=== PATIENT | female | born 1995 | race Caucasian/White ===

== ENCOUNTER 2017-08-18 13:53 | Observation (INO) | payer BC ==
[~2017-08-18] VITALS: Ht 165.1 cm; Wt 73.2 kg
[2017-08-18] MEDS ORDERED: MoRPHine SULFATE 4 MG/ML 1 ML CARP\\VIAL IV STA (15:32)
[2017-08-18] MEDS ORDERED: ONDANSETRON INJ 2 MG/ML 2 ML VIAL IV STA (15:32)
[2017-08-18] MEDS ORDERED: SODIUM CHLORIDE 0.9% 1000ML 1,000 ML IV STA ×2 (15:32→17:45)
[2017-08-18] MEDS ORDERED: INSU100I23 SC (15:57)
[2017-08-18] MEDS ORDERED: LEVO50TA PO (15:57)
[2017-08-18] MEDS ORDERED: BCPILLS PO (15:57)
[2017-08-18] MEDS ORDERED: NVLGI/PEN SC (15:57)
[2017-08-18 15:59] LABS: BASO % 0.4 %; BASO ABS # 0.05 K/uL (0-0.2); COMPLETE YES; EOS % 0.7 %; HEMATOCRIT 43.3 % (37-47); IG% 0.2 %; LYMPH ABS # 2.15 K/uL (1.2-3.4); MEAN CORPUSCULAR HEMOGLOBIN 32.6 pg (25-34); MEAN CORPUSCULAR HGB CONC 36.3 g/dl (32-36); MEAN PLATELET VOLUME 9.9 fL (7.4-10.4); MONO % 6.3 %; NEUT % 76.4 %; PLATELET COUNT 338 K/uL (130-400); RED BLOOD COUNT 4.81 M/uL (4.2-5.4); WHITE BLOOD COUNT 13.44 K/uL (4.8-10.8)
[2017-08-18 16:01] LABS: URINE APPEARANCE CLEAR (CLEAR); URINE BILIRUBIN NEG (NEG); URINE COLOR YELLOW; URINE NITRITE NEG (NEG); URINE PH 6.5 (4.5-7.5); URINE SPECIFIC GRAVITY 1.035 (1.000-1.030); UROBILINOGEN NEG (NEG)
[2017-08-18 16:05] LABS: MANUAL MICROSCOPIC REQUIRED? NO; REVIEW REQ? NO
[2017-08-18 16:47] LABS: ALKALINE PHOSPHATASE 86 U/L (45-117); ALT/SGPT 23 U/L (12-78); BLOOD UREA NITROGEN 13 mg/dl (7-18); CARBON DIOXIDE 24 mmol/L (21-32); CHLORIDE 102 mmol/L (98-107); GLUCOSE 281 mg/dl (70-99); SODIUM 135 mmol/L (136-145)
--- NOTE | 2017-08-18 17:12 | DIAGNOSTIC IMAGING REPORT ---
APPENDIX ULTRASOUND HISTORY: Right lower quadrant abdominal pain. COMPARISON: None. FINDINGS: Transabdominal scanning of the right lower quadrant was performed. There is a blind-ending tubular structure within the right lower quadrant which appears to demonstrate a slightly thickened wall and measures up to 9 mm in diameter. Therefore, this meets sonographic criteria for acute appendicitis. Trace amount of fluid within the right lower quadrant. IMPRESSION: There is a blind-ending tubular structure within the right lower quadrant which appears to demonstrate a slightly thickened wall and measures up to 9 mm in diameter. Therefore, this meets sonographic criteria for acute appendicitis. Surgical consultation is recommended. Electronically signed by: Saeed Sellers M.D. 08/18/2017 5:11 PM Dictated Date/Time: 08/18/2017 5:09 PM
[2017-08-18] MEDS ORDERED: NovoLIN-R INSULIN PER UNIT CHARGE SC STA (17:45)
[2017-08-18] MEDS: MoRPHine SULFATE 4 MG/ML 1 ML CARP\\VIAL IV PRN ×2 (18:05→22:33)
[2017-08-18] MEDS ORDERED: HEPARIN SOD (PORCINE) 1000 UNIT/ML 10 ML VIAL ONE (18:38)
[2017-08-18] MEDS ORDERED: BUPIVACAINE 0.5 % 5 MG/1 ML MPF 30ML VIAL ONE (18:38)
[2017-08-18] MEDS ORDERED: DEXAMETHASONE SOD INJ 4 MG/ML VIAL ONE (18:50)
[2017-08-18] MEDS ORDERED: LIDOCAINE HCL 2% 2 ML VIAL (20MG/ML) ONE (18:50)
[2017-08-18] MEDS ORDERED: PROPOFOL IV EMULSION 10 MG/ML 20 ML VIAL IV ONE (18:50)
[2017-08-18] MEDS ORDERED: ONDANSETRON INJ 2 MG/ML 2 ML VIAL ONE (18:50)
[2017-08-18] MEDS ORDERED: FENTANYL CITRATE INJ 50 MCG/1 ML 2 ML VIAL ONE ×3 (18:51→20:53)
--- NOTE | 2017-08-18 19:12 | History and Physical ---
History & Physical Date & Time of Service: Aug 18, 2017 at 19:08 Chief Complaint: Pain In Lower Right Abdomen,Nausea Primary Care Physician: [facility] History of Present Illness Source: patient Malathi is a pleasant 22 year-old female who presented to emergency department today with complaint of abdominal pain that began yesterday with associated nausea. Pain began while she was driving back to school from home. Started in the central abdomen around the umbilicus. Mild to moderate pain that waxed and waned throughout the evening and then increased in severity around 4 am. States the pain is now located in the RLQ, 7/10 sharp stabbing. No fever, chills, vomiting, changes in bowel habits, diarrhea, constipation, or blood in stools. Never had this type of pain before. Type 1 diabetic on Insulin. Other medical history includes hypothyroidism. Had an ultrasound of the abdomen which showed tubular structure in the RLQ dilated at 9 mm. Concerning for acute appendicitis WBC at 13.44. Social History Smoking Status: Never Smoker Allergies Coded Allergies: No Known Allergies (Unverified , 08/18/17) Home Medications Scheduled Control Pills ( Control Pills), 1 TAB PO DAILY Insulin Aspart (Novolog Flexpen), 1 DOSE SC TIDM Insulin Glargine (Basaglar Kwikpen), 30 UNITS SC HS Levothyroxine Sodium (Synthroid), 50 MCG PO DAILY Review of Systems Constitutional: No fever, No chills, No sweats Respiratory: No shortness of breath, No dyspnea at rest Abdomen: + pain, + nausea, No vomiting, No diarrhea, No constipation, No GI bleeding Genitourinary - Female: No dysuria, No urinary frequency Integumentary: No rash Physical Exam Vital Signs Date Time Temp Pulse Resp B/P (MAP) Pulse Ox O2 Delivery O2 Flow Rate FiO2 08/18/17 18:42 88 20 136/72 100 Room Air 08/18/17 17:38 82 08/18/17 17:34 82 16 131/85 98 Room Air 08/18/17 15:51 86 14 124/80 98 Room Air 08/18/17 13:55 37.0 101 20 137/98 98 Room Air General Appearance: WD/WN, no apparent distress Eyes: sclerae normal ENT: hearing grossly normal Neck: trachea midline Respiratory/Chest: lungs clear, normal breath sounds, no respiratory distress, no accessory muscle use Cardiovascular: regular rate, rhythm, no murmur Abdomen/GI: soft, no organomegaly, no pulsatile mass, + tenderness (RLQ), + guarding Extremities/Musculoskelatal: no pedal edema Neurologic/Psych: alert, normal mood/affect, oriented x 3 Skin: normal color, warm/dry, no rash Diagnostics Laboratory Results Results Past 24 Hours Test 08/18/17 15:40 08/18/17 18:01 Range/Units White Blood Count 13.44 4.8-10.8 K/uL Red Blood Count 4.81 4.2-5.4 M/uL Hemoglobin 15.7 12.0-16.0 g/dL Hematocrit 43.3 37-47 % Mean Corpuscular Volume 90.0 80-100 fL Mean Corpuscular Hemoglobin 32.6 25-34 pg Mean Corpuscular Hemoglobin Concent 36.3 32-36 g/dl Platelet Count 338 130-400 K/uL Mean Platelet Volume 9.9 7.4-10.4 fL Neutrophils (%) (Auto) 76.4 % Lymphocytes (%) (Auto) 16.0 % Monocytes (%) (Auto) 6.3 % Eosinophils (%) (Auto) 0.7 % Basophils (%) (Auto) 0.4 % Neutrophils # (Auto) 10.26 1.4-6.5 K/uL Lymphocytes # (Auto) 2.15 1.2-3.4 K/uL Monocytes # (Auto) 0.85 0.11-0.59 K/uL Eosinophils # (Auto) 0.10 0-0.5 K/uL Basophils # (Auto) 0.05 0-0.2 K/uL RDW Standard Deviation 41.7 36.4-46.3 fL RDW Coefficient of Variation 12.7 11.5-14.5 % Immature Granulocyte % (Auto) 0.2 % Immature Granulocyte # (Auto) 0.03 0.00-0.02 K/uL Urine Color YELLOW Urine Appearance CLEAR CLEAR Urine pH 6.5 4.5-7.5 Urine Specific [place] 1.035 1.000-1.030 Urine Protein NEG NEG Urine Glucose (UA) 3+ NEG Urine Ketones 3+ NEG Urine Occult Blood NEG NEG Urine Nitrite NEG NEG Urine Bilirubin NEG NEG Urine Urobilinogen NEG NEG Urine Leukocyte Esterase NEG NEG Urine Test NEG NEG Sodium Level 135 136-145 mmol/L Potassium Level 3.5-5.1 mmol/L Chloride Level 102 98-107 mmol/L Carbon Dioxide Level 24 21-32 mmol/L Anion Gap 9.0 3-11 mmol/L Blood Urea Nitrogen 13 7-18 mg/dl Creatinine 1.00 0.60-1.20 mg/dl Est Creatinine Clear Calc Drug Dose 89.9 ml/min Estimated GFR () 93.9 Estimated GFR (Non- 81.0 BUN/Creatinine Ratio 13.0 10-20 Random Glucose 281 70-99 mg/dl Calcium Level 9.0 8.5-10.1 mg/dl Total Bilirubin 1.1 0.2-1 mg/dl Direct Bilirubin 0-0.2 mg/dl Aspartate Amino Transf (AST/SGOT) 15-37 U/L Alanine Aminotransferase (ALT/SGPT) 23 12-78 U/L Alkaline Phosphatase 86 45-117 U/L Total Protein 7.8 6.4-8.2 gm/dl Albumin 3.5 3.4-5.0 gm/dl Lipase 61 73-393 U/L Bedside Glucose 223 70-90 mg/dl Diagnostic Radiology Abdominal Ultrasound showing dilated tubular structure in the RLQ measuring 9 mm Impression Assessment and Plan Acute Appendicitis Plan to take patient to operating room for laparoscopic possible open appendectomy. Discussed risks and procedure with patient, informed consent obtained She will get 2 gms Ancef preop She will be admitted to Med/surg post op Dr. Gleason has seen and examined patient, agrees with above Note I interviewed and examined this patient and reviewed her ultrasound and lab results and I agree with the above note. Her history, physical findings, ultrasound are all consistent with appendicitis. I have recommended a laparoscopic appendectomy have explained the procedure and the possible need to convert to an open procedure and the possible complications and she hsa signed a consent form.
[2017-08-18] MEDS ORDERED: EpHEDrine SULFATE INJ 50 MG/ML AMP IV PRN (19:15)
[2017-08-18] MEDS ORDERED: FENTANYL CITRATE INJ 50 MCG/1 ML 2 ML VIAL IV PRN (19:15)
[2017-08-18] MEDS ORDERED: ATROPINE SULFATE 0.1 MG/ML 5ML SYR IV PRN (19:15)
[2017-08-18] MEDS ORDERED: PROMETHAZINE HCL INJ 6.25 MG in SODIUM CHLORIDE 0.9% 50ML 50 ML IV PRN (19:15)
[2017-08-18] MEDS ORDERED: ONDANSETRON INJ 2 MG/ML 2 ML VIAL IV PRN ×2 (19:15→21:15)
[2017-08-18] MEDS: CEFAZOLIN SOD 1 GM VIAL ONE ×2 (19:37→20:40)
[2017-08-18] MEDS ORDERED: MoRPHine SULFATE 2 MG/ML CARP ONE (19:43)
[2017-08-18] MEDS ORDERED: KETOROLAC TROMETHAMINE 30 MG/ML VIAL ONE (20:08)
[2017-08-18] MEDS ORDERED: GLYCOPYRROLATE INJ 0.2 MG/ML VIAL ONE (20:09)
[2017-08-18] MEDS ORDERED: NEOSTIGMINE METHYLSULFATE 5 MG/5 ML SYR ONE (20:09)
[2017-08-18] MEDS ORDERED: ROCURONIUM BROMID 50MG/5ML SYR ONE (20:09)
--- NOTE | 2017-08-18 20:51 | Anesthesiology Progress Note ---
Anesthesia Post Op Note Date & Time Aug 18, 2017 at 20:51 Vital Signs Pain Intensity: 1 Vital Signs Past 12 Hours Date Time Temp Pulse Resp B/P (MAP) Pulse Ox O2 Delivery O2 Flow Rate FiO2 08/18/17 20:45 55 14 106/69 95 Room Air 08/18/17 20:35 54 14 106/66 95 Room Air 08/18/17 20:25 36.6 64 14 103/67 97 Room Air 08/18/17 18:42 88 20 136/72 100 Room Air 08/18/17 17:38 82 08/18/17 17:34 82 16 131/85 98 Room Air 08/18/17 15:51 86 14 124/80 98 Room Air 08/18/17 13:55 37.0 101 20 137/98 98 Room Air Notes Mental Status: alert / awake / arousable, participated in evaluation Pt Amnestic to Procedure: Yes Nausea / Vomiting: adequately controlled Pain: adequately controlled Airway Patency, RR, SpO2: stable & adequate BP & HR: stable & adequate Hydration State: stable & adequate Anesthetic Complications: no major complications apparent
--- NOTE | 2017-08-18 21:02 | Anesthesiology Progress Note ---
Anesthesia Post Op Note Date & Time Aug 18, 2017 at 21:02 Vital Signs Pain Intensity: 3 Vital Signs Past 12 Hours Date Time Temp Pulse Resp B/P (MAP) Pulse Ox O2 Delivery O2 Flow Rate FiO2 08/18/17 20:55 57 16 107/68 95 Room Air 08/18/17 20:45 55 14 106/69 95 Room Air 08/18/17 20:35 54 14 106/66 95 Room Air 08/18/17 20:25 36.6 64 14 103/67 97 Room Air 08/18/17 18:42 88 20 136/72 100 Room Air 08/18/17 17:38 82 08/18/17 17:34 82 16 131/85 98 Room Air 08/18/17 15:51 86 14 124/80 98 Room Air 08/18/17 13:55 37.0 101 20 137/98 98 Room Air Notes Mental Status: alert / awake / arousable, participated in evaluation Pt Amnestic to Procedure: Yes Nausea / Vomiting: adequately controlled Pain: adequately controlled Airway Patency, RR, SpO2: stable & adequate BP & HR: stable & adequate Hydration State: stable & adequate Anesthetic Complications: no major complications apparent
[2017-08-18] MEDS ORDERED: MoRPHine SULFATE 4 MG/ML 1 ML CARP\\VIAL IV PRN (21:15)
--- NOTE | 2017-08-18 21:17 | [facility] Post Operative Brief Note ---
Immediate Operative Summary Operative Date Aug 18, 2017. Pre-Operative Diagnosis Acute Appendicitis Post-Operative Diagnosis Acute Appendicitis Procedure(s) Performed Laparoscopic Appendectomy Surgeon Dr. Gleason Chair And Couch Maker Surgeon(s) NONE Estimated Blood Loss 5 ml Findings See dictation Specimens Permanent Specimen A. Appendix Drains None Anesthesia General Complication(s) None Disposition Recovery Room / PACU
[2017-08-18 21:40] VITALS: BP 105/71; PULSE 63; TEMP 36.9; O2SAT 97; Ht 165.1 cm; Wt 73.2 kg
[2017-08-18] MEDS ORDERED: PHARMACY GLYCEMIC MGMT CONSULT PRN (22:01)
[2017-08-18 22:10] VITALS: BP 101/61; PULSE 61; TEMP 36.8
[2017-08-18 22:40] VITALS: BP 93/61; PULSE 78; TEMP 36.7; O2SAT 96
[2017-08-18] MEDS ORDERED: D5W AND 1/2NSS + 20MEQ KCL 1,000 ML IV SCH (23:00)
[2017-08-18] MEDS ORDERED: GLUCOSE 40% GEL 15 GM TUBE PO PRN (23:15)
[2017-08-18] MEDS ORDERED: GLUCAGON FOR INJ 1 MG VIAL SQ PRN (23:15)
[2017-08-18] MEDS ORDERED: GLUCOSE 10 TABS/TUBE PO PRN (23:15)
[2017-08-18] MEDS ORDERED: DEXTROSE 50% 50 ML SYR IV PRN (23:15)
[2017-08-18] MEDS ORDERED: INSULIN GLARGINE SOLOSTAR 100 UNITS/ML 3 ML PEN SC SCH (23:30)
[2017-08-18 23:40] VITALS: BP 103/69; PULSE 71; TEMP 36.4; O2SAT 95
--- NOTE | 2017-08-18 23:45 | OPERATIVE REPORT ---
DATE OF OPERATION: 08/18/2017 PREOPERATIVE DIAGNOSIS: Acute appendicitis. POSTOPERATIVE DIAGNOSIS: Same. PROCEDURE: Laparoscopic appendectomy. SURGEON: Dr. Gleason. FINDINGS: The appendix was elongated. Its distal half was firm, hyperemic and edematous. The proximal half including the base was normal. The cecum was normal, especially at the base of the appendix. The visible bowel appeared normal. TECHNIQUE: The patient was given a general anesthetic and the area was prepped and draped in usual sterile fashion. Transverse incision was made below the umbilicus, carried down through the subcutaneous tissue to the fascia which was grasped with 2 Jose clamps and incised between. The peritoneum was identified, incised, and the introducer was placed bluntly. The abdomen was then insufflated to a pressure of 15 mmHg with carbon dioxide. The lower midline introducer was placed under direct vision through small skin incision. Traction was placed medially on the cecum and the appendix was easily identified. Left lower quadrant introducer was placed under direct vision through small skin incisions. Traction was placed anteriorly on the appendix. There were some lateral attachments that were divided, providing more mobility. That allowed me to identify the base of the appendix. I was then able to separate the mesoappendix away from the base of the appendix and divide the mesoappendix using the Endo-KASSIE stapler. The appendix base was then confidently identified. The appendix was amputated off the cecum using the Endo-KASSIE stapler. The appendix was placed into an Endobag and brought out through the left lower quadrant introducer site. That introducer was replaced and the right lower quadrant was inspected. The staple lines were seen. There was no bleeding. The right lower quadrant was irrigated and irrigation removed. Any irrigation fluid in the pelvis was removed and any irrigation up over the liver was removed. The gas was allowed to escape and the introducers were removed. The fascia of the umbilical and left lower quadrant introducer sites was closed with interrupted 0 Vicryl and the skin of all the incisions was closed with 4-0 Monocryl in a running or interrupted subcuticular fashion. The skin was anesthetized with 0.5% Marcaine. The skin was cleansed, dried, benzoin placed, Steri-Strips applied. Estimated blood loss was 5 mL. Sponge, needle and instrument counts were correct prior to closure. The patient tolerated the surgical procedure without complication and was transferred to recovery. I attest to the content of the Intraoperative Record and any orders documented therein. Any exception s are noted below.
[2017-08-18] MEDS: OXYCODONE/ACETAMINOPHEN 5-325 TAB PO PRN (23:49)
--- NOTE | 2017-08-19 00:33 | EMERGENCY ROOM VISIT NOTE ---
ED Visit Note First contact with patient: 15:05 Chief Complaint: I'm having pain in my right lower abdomen. History of Present Illness: Ms. Bradford is a 22 year-old white female complaining of right lower quadrant abdominal pain. Historically patient reports no significant gastrointestinal disorders or abdominal surgeries. Patient reports yesterday afternoon approximately 4 PM, approximately 24 hours ago, she was riding back to school from home; worsening EC area and started getting nausea and had some mild abdominal discomfort in the periumbilical area. Throughout the evening and most tonight this discomfort was constant but that slightly waxed and waned in intensity. Then she noted approximately 4 AM this morning her pain intensified and became constant. She did report she takes Tums yesterday because she thought this was possibly carsickness without relief. Currently she is describing her pain as a sharp stabbing sensation in the right lower quadrant. She rates her discomfort 6/10. The pain is nonradiating. Her pain her sons when she moves from the lying to sitting position with the stating to the standing position. She has not identified any alleviating factors related to the pain. She has not taken any additional medications for pain prior to arrival at the hospital. Associated with her pain she reports she 's been nauseated but has not vomited and she has had a decreased appetite. She denies fevers, chills, sweats, skin eruptions, skin color changes, upper respiratory tract symptoms, shortness of breath, chest pain, diarrhea, constipation, rectal bleeding, black/tarry stools, urinary symptoms, hematuria, vaginal bleeding, vaginal discharge, back/flank pain. Review of Systems: As noted above in history of present illness. All body systems were reviewed and found to be negative as noted above. Past Medical History: Diabetes type 1, hypothyroidism, unspecified skin disorder , bronchitis, chronic urinary tract infections, status post wisdom teeth extraction. Current Medications: Medications Dose Route/Sig Max Daily Dose Days Date Category Dose Instructions Basaglar Kwikpen (Insulin Glargine) 100 Unit/Ml Inj 30 Units SC HS 08/18/17 Reported Synthroid (Levothyroxine Sodium) 50 Mcg Tab 50 Mcg PO DAILY 08/18/17 Reported Novolog Flexpen (Insulin Aspart) 100 Units/Ml Inj 1 Dose SC TIDM 08/18/17 Reported COVERAGE DIRECTED BY [employer]ING [employer] Control Pills (Miscellaneous) Tab 1 Tab PO DAILY 08/18/17 Reported Allergies to Medications: Patient denies. Social History: Patient is University student; she feels safe in her home environment; she denies tobacco use and admits to alcohol use. Physical Examination: Vital Signs: Date Time Temp Pulse Resp B/P (MAP) Pulse Ox O2 Delivery O2 Flow Rate FiO2 08/18/17 21:10 36.5 57 16 104/69 95 Room Air 08/18/17 20:55 57 16 107/68 95 Room Air 08/18/17 20:45 55 14 106/69 95 Room Air 08/18/17 20:35 54 14 106/66 95 Room Air 08/18/17 20:25 36.6 64 14 103/67 97 Room Air 08/18/17 18:42 88 20 136/72 100 Room Air 08/18/17 17:38 82 08/18/17 17:34 82 16 131/85 98 Room Air 08/18/17 15:51 86 14 124/80 98 Room Air 08/18/17 13:55 37.0 101 20 137/98 98 Room Air GENERAL: 22-year-old female in mild distress due to pain, nontoxic-appearing, afebrile and hemodynamically stable. NEUROLOGICAL: Awake, alert and oriented to person, place and time. Answering questions appropriately and following commands. Normal gait. Good hand eye coordination. SKIN: Warm, dry and pink. No soft tissue eruptions or trauma noted. HEENT: Atraumatic and normocephalic. PERRLA. Sclera white and conjunctiva pink. Oral cavity moist and pink. Pharynx is nonerythematous or edematous. Speech normal. No lymphadenopathy. Trachea midline. No jugular venous distention. BACK: No tenderness over the bony spine. No CVA tenderness. THORAX: Lungs sounds are clear to auscultation and equal bilaterally with symmetrical chest wall. No wheezing, rales or rhonchi. No crepitus, tenderness , subcutaneous air or deformities noted. HEART: Regular rate and rhythm. No gallops, rubs or murmurs are appreciated. ABDOMEN: Flat and soft with moderate tenderness and voluntary guarding in the right lower quadrant. Decreased bowel sounds in all quadrants. No rigidity or organomegaly. Positive Rovsing's sign and Heel tap. EXTREMITIES: Moves all extremities well on command and with purpose. All distal neurovascular statuses are intact and equal bilaterally. ED Course: Patient is assessed as noted above. Laboratory Testing: Test 08/18/17 15:40 08/18/17 18:01 08/18/17 20:34 Range/Units White Blood Count 13.44 4.8-10.8 K/uL Red Blood Count 4.81 4.2-5.4 M/uL Hemoglobin 15.7 12.0-16.0 g/dL Hematocrit 43.3 37-47 % Mean Corpuscular Volume 90.0 80-100 fL Mean Corpuscular Hemoglobin 32.6 25-34 pg Mean Corpuscular Hemoglobin Concent 36.3 32-36 g/dl Platelet Count 338 130-400 K/uL Mean Platelet Volume 9.9 7.4-10.4 fL Neutrophils (%) (Auto) 76.4 % Lymphocytes (%) (Auto) 16.0 % Monocytes (%) (Auto) 6.3 % Eosinophils (%) (Auto) 0.7 % Basophils (%) (Auto) 0.4 % Neutrophils # (Auto) 10.26 1.4-6.5 K/uL Lymphocytes # (Auto) 2.15 1.2-3.4 K/uL Monocytes # (Auto) 0.85 0.11-0.59 K/uL Eosinophils # (Auto) 0.10 0-0.5 K/uL Basophils # (Auto) 0.05 0-0.2 K/uL RDW Standard Deviation 41.7 36.4-46.3 fL RDW Coefficient of Variation 12.7 11.5-14.5 % Immature Granulocyte % (Auto) 0.2 % Immature Granulocyte # (Auto) 0.03 0.00-0.02 K/uL Urine Color YELLOW Urine Appearance CLEAR CLEAR Urine pH 6.5 4.5-7.5 Urine Specific [place] 1.035 1.000-1.030 Urine Protein NEG NEG Urine Glucose (UA) 3+ NEG Urine Ketones 3+ NEG Urine Occult Blood NEG NEG Urine Nitrite NEG NEG Urine Bilirubin NEG NEG Urine Urobilinogen NEG NEG Urine Leukocyte Esterase NEG NEG Urine Test NEG NEG Sodium Level 135 136-145 mmol/L Potassium Level 3.5-5.1 mmol/L Chloride Level 102 98-107 mmol/L Carbon Dioxide Level 24 21-32 mmol/L Anion Gap 9.0 3-11 mmol/L Blood Urea Nitrogen 13 7-18 mg/dl Creatinine 1.00 0.60-1.20 mg/dl Est Creatinine Clear Calc Drug Dose 89.9 ml/min Estimated GFR () 93.9 Estimated GFR (Non- 81.0 BUN/Creatinine Ratio 13.0 10-20 Random Glucose 281 70-99 mg/dl Calcium Level 9.0 8.5-10.1 mg/dl Total Bilirubin 1.1 0.2-1 mg/dl Direct Bilirubin 0-0.2 mg/dl Aspartate Amino Transf (AST/SGOT) 15-37 U/L Alanine Aminotransferase (ALT/SGPT) 23 12-78 U/L Alkaline Phosphatase 86 45-117 U/L Total Protein 7.8 6.4-8.2 gm/dl Albumin 3.5 3.4-5.0 gm/dl Lipase 61 73-393 U/L Bedside Glucose 223 138 70-90 mg/dl Appendix Ultrasound: Was reviewed by myself and read by the radiologist showing a blind ended tubular structure within the right lower quadrant which appears slightly thickened and measures up to 9 mm meeting criteria for acute appendicitis. Patient was hydrated with normal saline and she received for pain received a total of 8 mg of morphine IV for pain and 4 mg of Zofran IV for nausea. Additionally she was found to be hyperglycemic and was given 10 units of regular insulin subcutaneous; her blood sugars were monitored and she was never hypoglycemic. Patient's case was consulted with Dr. Kevyn Gleason, general surgery; for surgical evaluation. Patient is educated about today's findings and instructed on her treatment plan ; she verbalized understanding and agreement with this plan. Clinical Impression: Acute appendicitis. Decision-Making: Initially my differential diagnosis I considered acute appendicitis, constipation, ectopic , ovarian torsion, ovarian cyst rupture, urinary tract infection, kidney stone and other causes. Disposition and Plan: Patient was taken to the OR for surgery with Dr. Gleason ; please see his notes and orders for final disposition and plan.
[2017-08-19 00:40] VITALS: BP 97/63; PULSE 76; TEMP 36.8; O2SAT 96
[2017-08-19] MEDS: INSULIN ASPART 100 UNITS/ML 3 ML PEN SC SCH ×3 (02:04→13:15)
[2017-08-19 04:44] VITALS: BP 97/61; PULSE 66; TEMP 36.7; O2SAT 97
[2017-08-19] MEDS ORDERED: IV FLUIDS COMPLETED PRN (05:45)
[2017-08-19 07:16] VITALS: BP 113/68; PULSE 67; TEMP 36.7; O2SAT 97
--- NOTE | 2017-08-19 09:04 | Surgery Progress Note ---
Surgery Progress Note Date of Service Aug 19, 2017. Subjective Post OP Day: 1 (s/p laparoscopic appendectomy) + feeling well, + pain controlled (with oral pain medication), + diet (not very hungry , had some pudding just to take Percocet), No chest pain, No SOB, No bowel movement, No flatus, No nausea, No vomiting Objective Vital Signs: Date Time Temp Pulse Resp B/P (MAP) Pulse Ox O2 Delivery O2 Flow Rate FiO2 08/19/17 08:11 Room Air 08/19/17 07:16 36.7 67 14 113/68 (83) 97 Room Air 08/19/17 04:44 36.7 66 14 97/61 (73) 97 Room Air 08/19/17 00:40 36.8 76 14 97/63 (74) 96 Room Air 08/18/17 23:40 36.4 71 14 103/69 (80) 95 Room Air 08/18/17 22:40 36.7 78 18 93/61 (72) 96 Room Air 08/18/17 22:10 36.8 61 16 101/61 (74) Room Air 08/18/17 21:40 36.9 63 16 105/71 97 Room Air 08/18/17 21:40 97 Room Air 08/18/17 21:40 Room Air 08/18/17 21:20 36.5 59 16 112/67 95 Room Air 08/18/17 21:10 36.5 57 16 104/69 95 Room Air 08/18/17 20:55 57 16 107/68 95 Room Air 08/18/17 20:45 55 14 106/69 95 Room Air 08/18/17 20:35 54 14 106/66 95 Room Air 08/18/17 20:25 36.6 64 14 103/67 97 Room Air 08/18/17 18:42 88 20 136/72 100 Room Air 08/18/17 17:38 82 08/18/17 17:34 82 16 131/85 98 Room Air 08/18/17 15:51 86 14 124/80 98 Room Air 08/18/17 13:55 37.0 101 20 137/98 98 Room Air General Appearance: WD/WN, no apparent distress Head: normocephalic, atraumatic Neck: trachea midline Respiratory/Chest: lungs clear, normal breath sounds, no respiratory distress, no accessory muscle use Cardiovascular: regular rate, rhythm, no murmur Abdomen: non distended, soft, + tenderness (appropriate post op at incision sites and generalized, no further RLQ peritonitis or guarding) Incision(s): clean, dry, intact, findings (steri strips present) Laboratory Results: Results Past 24 Hours Test 08/18/17 15:40 08/18/17 18:01 08/18/17 20:34 08/18/17 23:45 Range/Units White Blood Count 13.44 4.8-10.8 K/uL Red Blood Count 4.81 4.2-5.4 M/uL Hemoglobin 15.7 12.0-16.0 g/dL Hematocrit 43.3 37-47 % Mean Corpuscular Volume 90.0 80-100 fL Mean Corpuscular Hemoglobin 32.6 25-34 pg Mean Corpuscular Hemoglobin Concent 36.3 32-36 g/dl Platelet Count 338 130-400 K/uL Mean Platelet Volume 9.9 7.4-10.4 fL Neutrophils (%) (Auto) 76.4 % Lymphocytes (%) (Auto) 16.0 % Monocytes (%) (Auto) 6.3 % Eosinophils (%) (Auto) 0.7 % Basophils (%) (Auto) 0.4 % Neutrophils # (Auto) 10.26 1.4-6.5 K/uL Lymphocytes # (Auto) 2.15 1.2-3.4 K/uL Monocytes # (Auto) 0.85 0.11-0.59 K/uL Eosinophils # (Auto) 0.10 0-0.5 K/uL Basophils # (Auto) 0.05 0-0.2 K/uL RDW Standard Deviation 41.7 36.4-46.3 fL RDW Coefficient of Variation 12.7 11.5-14.5 % Immature Granulocyte % (Auto) 0.2 % Immature Granulocyte # (Auto) 0.03 0.00-0.02 K/uL Urine Color YELLOW Urine Appearance CLEAR CLEAR Urine pH 6.5 4.5-7.5 Urine Specific [place] 1.035 1.000-1.030 Urine Protein NEG NEG Urine Glucose (UA) 3+ NEG Urine Ketones 3+ NEG Urine Occult Blood NEG NEG Urine Nitrite NEG NEG Urine Bilirubin NEG NEG Urine Urobilinogen NEG NEG Urine Leukocyte Esterase NEG NEG Urine Test NEG NEG Sodium Level 135 136-145 mmol/L Potassium Level 3.5-5.1 mmol/L Chloride Level 102 98-107 mmol/L Carbon Dioxide Level 24 21-32 mmol/L Anion Gap 9.0 3-11 mmol/L Blood Urea Nitrogen 13 7-18 mg/dl Creatinine 1.00 0.60-1.20 mg/dl Est Creatinine Clear Calc Drug Dose 89.9 ml/min Estimated GFR () 93.9 Estimated GFR (Non- 81.0 BUN/Creatinine Ratio 13.0 10-20 Random Glucose 281 70-99 mg/dl Calcium Level 9.0 8.5-10.1 mg/dl Total Bilirubin 1.1 0.2-1 mg/dl Direct Bilirubin 0-0.2 mg/dl Aspartate Amino Transf (AST/SGOT) 15-37 U/L Alanine Aminotransferase (ALT/SGPT) 23 12-78 U/L Alkaline Phosphatase 86 45-117 U/L Total Protein 7.8 6.4-8.2 gm/dl Albumin 3.5 3.4-5.0 gm/dl Lipase 61 73-393 U/L Bedside Glucose 223 138 117 70-90 mg/dl Test 08/19/17 02:02 08/19/17 07:55 Range/Units Bedside Glucose 159 274 70-90 mg/dl Assessment & Plan POD # 1 s/p laparoscopic appendectomy -vitals stable, afebrile - adequate urine output - pain controlled with PO Percocet - low appetite currently Plan: Will evaluate patient later this morning, early afternoon, if pain is controlled further with PO Percocet, tolerates more of a diet, and ambulates hopeful discharge later today. Will stop D5w given type 1 diabetes and start NS @ 100 mls/hr until tolerating PO well and then can decrease continue current management Evaluated at 2:[address] Gleason Patient doing well, tolerated regular diet for lunch Pain controlled with Percocet Ambulating without difficulty Plan to d/c home, instructions reviewed and Rx given Follow-up in [address] Gleason has seen patient, agrees with above
[2017-08-19] MEDS ORDERED: SODIUM CHLORIDE 0.9% 1000ML 1,000 ML IV SCH (09:15)
--- NOTE | 2017-08-19 09:21 | Pharmacy Progress Note ---
Glycemic Control Intl Consult Date of Service Aug 19, 2017. Scope Glycemic Pharmacist consulted by Dr Gleason on 08/18/17 for glycemic control and to write orders per [facility] inpatient glycemic control protocol Objective Weight (Kilograms): 73.200 Accuchecks BSG (last 24hrs): Test 08/18/17 15:40 08/18/17 18:01 08/18/17 20:34 08/18/17 23:45 Random Glucose 281 mg/dl (70-99) Bedside Glucose 223 mg/dl (70-90) 138 mg/dl (70-90) 117 mg/dl (70-90) Test 08/19/17 02:02 08/19/17 07:55 Bedside Glucose 159 mg/dl (70-90) 274 mg/dl (70-90) Laboratory Data (last 24hrs) Test 08/18/17 15:40 Anion Gap 9.0 mmol/L BUN/Creatinine Ratio 13.0 Blood Urea Nitrogen 13 mg/dl Creatinine 1.00 mg/dl Potassium Level mmol/L Sodium Level 135 mmol/L White Blood Count 13.44 K/uL Red Blood Count 4.81 M/uL Hemoglobin 15.7 g/dL Hematocrit 43.3 % Mean Corpuscular Volume 90.0 fL Mean Corpuscular Hemoglobin 32.6 pg Mean Corpuscular Hemoglobin Concent 36.3 g/dl Platelet Count 338 K/uL Mean Platelet Volume 9.9 fL Neutrophils (%) (Auto) 76.4 % Lymphocytes (%) (Auto) 16.0 % Monocytes (%) (Auto) 6.3 % Eosinophils (%) (Auto) 0.7 % Basophils (%) (Auto) 0.4 % Neutrophils # (Auto) 10.26 K/uL Lymphocytes # (Auto) 2.15 K/uL Monocytes # (Auto) 0.85 K/uL Eosinophils # (Auto) 0.10 K/uL Basophils # (Auto) 0.05 K/uL Recent Pertinent Medications Outpatient Anti-diabetic Regimen: * Lantus 30 units SQ HS * NovoLog with meals per scale The patient is currently receiving: * Basal insulin: Lantus 25 units every 24 hours given at bedtime * Correctional Insulin: Novolog Correction per scale ACHS Goal Range: Low 110 mg/dL - High 150 mg/dL Correction Factor: 30 mg/dL/unit * Prandial insulin: Per carb ratio of 1 unit per 10 grams CHO consumed Risk Factors for Insulin Resistance: * Recent Surgery * Diet Assessment & Plan ASSESSMENT: * 22yo T1DM female s/p appy. Degree of outpatient control uncertain as no recent A1c reported. * Reduced Lantus dose given last night secondary to decreased PO intake and 10 units of regular insulin SQ given in OR. BSG checked and covered at 0200 d/t reduced dose given. * BSG rising this morning secondary to stress from surgery and dextrose IVF. Dextrose IVF needed in type 1 diabetic as source of CHO while prolonged NPO. * IVF changed to NSS per provider. Pt ate a little bit of pudding this morning * ADA & AACE recommend a goal blood sugar range 140-180 mg/dl for the majority of critically ill & non-critically ill patients. However, more stringent targets may be selected in individual cases. Will utilize more stringent goal of 110-140mg/dl based on patient age & comorbidities. Additionally, tighter glycemic control is warranted to facilitate wound/infection healing. PLAN FOR INPATIENT GLYCEMIC CONTROL: * Basal insulin * Resume outpatient dosing of Lantus 30 units SQ HS * Bolus insulin * NovoLog per scale ACHS or Q6hrs while NPO * Goal Range: Low 110 mg/dL - High 140 mg/dL * Correction Factor: 30 mg/dL/unit * Nutritional / Prandial insulin per carb ratio of 1 unit per 10 grams CHO consumed * Please note that the plan above was derived based on current level of insulin resistance and hospital stress. These recommendations are appropriate for inpatient admission only. Plan of care upon discharge will need to be reassessed to avoid potential outpatient hypo/hyperglycemia. Thank you.
[2017-08-19] MEDS: OXYCODONE/ACETAMINOPHEN 5-325 TAB PO PRN ×2 (09:43→15:33)
[2017-08-19 11:24] VITALS: BP 107/68; PULSE 65; TEMP 36.7; O2SAT 97
[2017-08-19] MEDS ORDERED: OXYC-57 PO (13:33)
--- NOTE | 2017-08-19 13:38 | Discharge Instructions ---
Discharge Instructions Date of Service Aug 19, 2017. Admission Reason for Admission: Appendicitis Discharge Discharge Diagnosis / Problem: same Discharge Goals Goal(s): Decrease discomfort, Improve function Activity Recommendations Activity Limitations: as noted below No heavy lifting over 10 pounds for 2 weeks No strenuous activity until cleared by surgeon No Submerging incisions underwater for 2 weeks (no bathing, swimming, or hot tubs) No driving while taking narcotic pain medication or until you are pain free . Instructions / Follow-Up Instructions / Follow-Up You may shower when you get home. Leave steri strips on incisions for 7 days. They may fall off on their own that is okay. You do not need to keep a dressing on incisions Walking and light activity is encouraged to prevent blood clots You will need a follow-up in 2 weeks in Surgical office, please call [phone] to make an appointment Current Hospital Diet Patient's current hospital diet: Diabetes Type 1 Diet Discharge Diet Recommended Diet: Regular Diet Procedures Procedures Performed: Laparoscopic Appendectomy Pending Studies Studies pending at discharge: yes List of pending studies: Pathology- Appendix. Will be reviewed at follow-up visit Medical Emergencies . Who to Call and When: Medical Emergencies: If at any time you feel your situation is an emergency, please call 911 immediately. . Non-Emergent Contact Non-Emergency issues call your: Primary Care Provider, Surgeon Call Non-Emergent contact if: you have a fever, temperature is above 101.5, your pain is not controlled, your pain is worsening, wound has increased drainage, wound has increased redness, wound has increased pain . "Provider Documentation" section prepared by Allie Mcgee. . VTE Core Measure Inpt VTE Proph given/why not?: Treatment not indicated [place] Drug Monitoring Program Search Results: patient reviewed within database, no issues identified
[2017-08-19 15:05] VITALS: BP 107/68; PULSE 65; TEMP 36.7; O2SAT 97
[2017-08-19] MEDS ORDERED: INSULIN GLARGINE SOLOSTAR 100 UNITS/ML 3 ML PEN SC SCH ×2 (17:45→21:00)
--- NOTE | 2017-08-21 13:46 | Discharge Summary ---
Discharge Summary Dates Admission Date / Time: Aug 18, 2017 at 21:16 Discharge Date: Aug 19, 2017 Dispostion / Condition Discharge Disposition: Home Condition at Discharge: Good Principal Diagnosis (1) Appendicitis Problem List (1) Appendicitis (2) Type 1 diabetes (3) Hypothyroidism Consultations / Procedures Consultations: None Procedures: Laparoscopic Appendectomy Pending Studies / Follow-Up Appendix pathology- will be reviewed at follow-up visit Medication Reconciliation New Medications: Oxycodone/Acetaminophen 5MG/325MG (Percocet 5MG/325MG) Tab 1 TABLET PO Q4H PRN for Pain, #18 TAB Continued Medications: Control Pills ( Control Pills) Tab 1 TAB PO DAILY, TAB Insulin Aspart (Novolog Flexpen) 100 Units/Ml Inj 1 DOSE SC TIDM COVERAGE DIRECTED BY SLIDING SCALE Insulin Glargine (Basaglar Kwikpen) 100 Unit/Ml Inj 30 UNITS SC HS Levothyroxine Sodium (Synthroid) 50 Mcg Tab 50 MCG PO DAILY, TAB Admission HPI Per the Admitting provider: Malathi is a pleasant 22 year-old female who presented to emergency department today with complaint of abdominal pain that began yesterday with associated nausea. Pain began while she was driving back to school from home. Started in the central abdomen around the umbilicus. Mild to moderate pain that waxed and waned throughout the evening and then increased in severity around 4 am. States the pain is now located in the RLQ, 7/10 sharp stabbing. No fever, chills, vomiting, changes in bowel habits, diarrhea, constipation, or blood in stools. Never had this type of pain before. Type 1 diabetic on Insulin. Other medical history includes hypothyroidism. Had an ultrasound of the abdomen which showed tubular structure in the RLQ dilated at 9 mm. Concerning for acute appendicitis WBC at 13.44. Admission Exam Per the Admitting provider: General Appearance: WD/WN, no apparent distress Eyes: sclerae normal ENT: hearing grossly normal Neck: trachea midline Respiratory/Chest: lungs clear, normal breath sounds, no respiratory distress, no accessory muscle use Cardiovascular: regular rate, rhythm, no murmur Abdomen/GI: soft, no organomegaly, no pulsatile mass, + tenderness (RLQ), + guarding Extremities/Musculoskelatal: no pedal edema Neurologic/Psych: alert, normal mood/affect, oriented x 3 Skin: normal color, warm/dry, no rash Hospital Course (1) Appendicitis Patient was taken back to operating room for laparoscopic possible open appendectomy. Patient tolerated procedure well without any complications. She was transferred to the PACU in stable condition and then to the medical/ surgical floor for post operative care. She was started on regular diet, IV fluids, IV Morphine and PO Percocet as needed for pain, IV Zofran, Insulin for her Diabetes, and activity as tolerated. POD # 1 patient was doing well, moderate pain controlled with PO percocet. Did not have much of an appetite in the morning. Urinating without difficulty. Her sugars were elevated in the 200 's therefore IV fluids were switched from D5W 1/2 NSS to NS @ 100 mls/hr. She was evaluated later in the day and was feeling much better. Pain was controlled , tolerated regular diet for lunch, urinated and ambulated without difficulty. She was discharged home on POD # 1 in stable condition. Discharge Instructions as given to patient Copies To Primary Care Provider: [facility]. Problem Qualifiers (1) Appendicitis: Appendicitis type: acute appendicitis
== END 2017-08-19 16:27 | disposition home or self-care (01) ==
LOC: C.EDB 13:55 → C.3E 21:16 → ENRESERV 21:28
PROVIDERS: ADMIT Surgery; ATTEND Surgery
DX: K35.80 Unspecified acute appendicitis (principal); E11.9 Type 2 diabetes mellitus without complications; Z98.86 Personal history of breast implant removal; Z79.3 Long term (current) use of hormonal contraceptives